=== PATIENT | male | born 1985 | race Caucasian/White ===

== ENCOUNTER 2023-07-20 06:59 | Emergency (ER) | payer MEDICAID, SELFPAY ==
[2023-07-20 07:10] VITALS: BP 142/89; PULSE 79; TEMP 36.4; O2SAT 98; BMI 58.1
--- NOTE | 2023-07-20 07:29 | XR_ITS ---
Patient: LISSETTE THOMPSON Facility:?[facility] Patient ID:?[id number] Site Patient ID:?[id number] Site :?1985 Study:?XRay-Abdomen 2 VIEW-07/20/2023 8:13:02 AM Ordering Physician:JACKI Final Report: Indication: Epigastric pain. History of achalasia. Technique: Upright and supine views of the abdomen were acquired Comparison: None Findings: Osseous structures are normal. Bowel gas pattern is within normal limits. In the lower thoracic region, there may be subtle abnormal concavity at the azygous esophageal recess. This can be seen in a dilated esophagus. The esophagus is very difficult to evaluate by plain film. Additional imaging should be considered as clinically warranted. Impression: 1. Normal bowel gas pattern. 2. Possible subtle abnormal concavity at the as ago esophageal recess in the lower thorax. This can be seen in dilated esophagus. Esophageal pathology is very difficult to evaluate by plain film. Additional imaging should be considered as clinically warranted Dictated by Rivera Costello MD @ 07/20/2023 8:17:32 AM Signed by:?Rivera Costello MD @07/20/2023 8:17:32 AM (Electronic Signature)
--- NOTE | 2023-07-20 07:29 | XR_ITS ---
Patient: LISSETTE THOMPSON Facility:?[facility] Patient ID:?[id number] Site Patient ID:?[id number] Site :?1985 Study:?XRay-Chest 2 VIEW-07/20/2023 8:12:13 AM Ordering Physician:JACKI Final Report: INDICATION: Chest pain COMPARISON: None TECHNIQUE: PA and lateral views of the chest were acquired FINDINGS: TUBES AND LINES: None. HEART AND MEDIASTINUM: The heart size is normal. The mediastinal contour appears normal for patient age. LUNGS AND PLEURAL SPACES: The lungs appear normal.The pleural spaces are unremarkable. OSSEOUS STRUCTURES: Age-appropriate appearance. No acute focal finding. IMPRESSION: No evidence of active pulmonary disease. Dictated by Rivera Costello MD @ 07/20/2023 8:13:48 AM Signed by:?Rivera Costello MD @07/20/2023 8:13:48 AM (Electronic Signature)
--- NOTE | 2023-07-20 07:31 | ED_ITS ---
HPI - General Adult General Chief complaint: Chest Pain <Alta Torres MD - Last Filed: 07/20/23 23:58> Stated complaint: Chest pain, nausea, vomiting <lAta Torres MD - Last Filed: 07/20/23 23:58> Time Seen by Provider: 07/20/23 07:17 <Alta Torres MD - Last Filed: 07/20/23 23:58> Source: patient <Alta Torres MD - Last Filed: 07/20/23 23:58> Mode of arrival: ambulatory <Alta Torres MD - Last Filed: 07/20/23 23:58> Limitations: no limitations <Alta Torres MD - Last Filed: 07/20/23 23:58> History of Present Illness HPI narrative: 37-year-old male presents the emergency department for evaluation of weakness, nausea and chest area pain. Pain started about 36 hours ago. It alternates in waves lasting a few minutes from about 1-4 currently. He had 2 episodes each lasting about 30 minutes each where the pain was severe. The last severe episode was yesterday afternoon. After the severe episodes of pain, he has also had bouts of diarrhea, nonbloody. Last stool was yesterday. Unable to tolerate food but has been drinking water. Feels like his urination is getting decreased. No sick contacts, no pertinent travel. No fever. No trauma or injury. No cardiac or exertional symptoms, no palpitations. He reports that he does feel little short of breath but is he describes as I am interpreting it more that he is feeling weak. He feels very nauseated but has not thrown up. Reports that he is physically unable to vomit. No dizziness or neurological changes. 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 He says that this started after a bout of COVID a few years ago. He has had several endoscopies. He takes nifedipine every morning for this, is not regularly using a proton pump inhibitor but did take a dose yesterday with no significant improvement in symptoms. It does sound as though he had appropriate biopsies and workup during the evaluation of his achalasia. He also tried Tums yesterday with no significant improvement in his symptoms. He reports that during the severe bout of pain yesterday afternoon, he had a brief syncopal episode lasting just a couple of seconds that was witnessed by his , was definitely not seizure like in their description. He reports that this was from the severe pain. Has not occurred since. No dysuria. No prior history of abdominal surgeries. No right upper quadrant pain or history of gallbladder disease. Family history is notable for gallbladder disease in his brother. States that he does not drink alcohol. Remain pertinent past medical history benign besides the achalasia. Allergies to Augmentin. Home meds nifedipine unknown dose every morning. No longer using omeprazole that is listed. Nonsmoker, no pertinent travel. ROS notable for the chest/GI symptoms as described above. Otherwise denies times 12 systems. <Alta Torres MD - Last Filed: 07/20/23 23:58> Related Data Home medications: Home Medications Medication Instructions Recorded Confirmed nifedipine 30 mg tablet,extended tab PO 06/18/22 02/03/23 release dicyclomine 10 mg capsule 10 mg PO PRN 02/03/23 02/03/23 pantoprazole 40 mg tablet,delayed 40 mg PO PRN 02/03/23 02/03/23 release Previous Rx's Medication Instructions Recorded ondansetron 4 mg disintegrating 4 mg PO Q6H #20 tabs 07/20/23 tablet <Alta Torres MD - Last Filed: 07/20/23 23:58> Allergies/adverse reactions: Allergies Allergy/AdvReac Type Severity Reaction Status Date / Time amoxicillin [From Augmentin] Allergy Verified 02/03/23 12:46 clavulanic acid Allergy Verified 02/03/23 12:46 [From Augmentin] <Alta Torres MD - Last Filed: 07/20/23 23:58> PFSH PFSH Medical History: Medical History Wound of foot ?S91.309A - Unspecified open wound, unspecified foot, initial encounter (ICD- 10) <Alta Torres MD - Last Filed: 07/20/23 23:58> Social History: Social History Smoking Status: Never smoker Second hand tobacco smoke exposure: No How often do you have a drink containing alcohol: never AUDIT-C Alcohol total score: 0 Non-prescribed substance use: denies use service: No <Alta Torres MD - Last Filed: 07/20/23 23:58> Exam Const: Vital Signs, click to edit/add: Vital Signs - 24 hr 07/20/23 07:10 07/20/23 09:03 Temperature 97.6 F 98.0 F Pulse Rate [Pulse Oximeter] 79 72 Respiratory Rate 16 Blood Pressure [Ri ght Upper Arm] 142/89 H 136/72 Pulse Oximetry 98 98 Oxygen Delivery Me thod Room Air Room Air <Alta Torres MD - Last Filed: 07/20/23 23:58> Vital Signs, click to edit/add: Vital Signs - 24 hr 07/20/23 07:10 07/20/23 09:03 Temperature 97.6 F 98.0 F Pulse Rate [Pulse Oximeter] 79 72 Respiratory Rate 16 Blood Pressure [Ri ght Upper Arm] 142/89 H 136/72 Pulse Oximetry 98 98 Oxygen Delivery Me thod Room Air Room Air <Macario Tejada DO - Last Filed: 07/20/23 09:17> Documenting provider has reviewed patient's vital signs: yes <Alta Torres MD - Last Filed: 07/20/23 23:58> Common normals: no apparent distress and alert <Alta Torres MD - Last Filed: 07/20/23 23:58> General appearance: cooperative <Alta Torres MD - Last Filed: 07/20/23 23:58> Other: Appears mildly ill, answers questions appropriately. Good historian. Friendly and cooperative. <Alta Torres MD - Last Filed: 07/20/23 23:58> HENMT: Common normals: normocephalic <Alta Torres MD - Last Filed: 07/20/23 23:58> Head and scalp: normocephalic <Alta Torres MD - Last Filed: 07/20/23 23:58> Face and sinus: normal facial exam <Alta Torres MD - Last Filed: 07/20/23 23:58> Mouth: oral and palatal mucosa normal <MD Lexus Worthy Last Filed: 07/20/23 23:58> Throat: posterior oropharynx normal <MD Lexus Worthy Last Filed: 07/20/23 23:58> Eye: Common normals: conjunctivae normal <MD Lexus Worthy Last Filed: 07/20/23 23:58> General eye: normal appearance of both eyes <MD Lexus Worthy Last Filed: 07/20/23 23:58> Conjunctiva: conjunctiva(e) normal <MD Lexus Worthy Last Filed: 07/20/23 23:58> Neck & C-Spine: Common normals: full ROM and no lymphadenopathy <MD Lexus Worthy Last Filed: 07/20/23 23:58> Chest: Common normals: inspection of chest normal <MD Lexus Worthy Last Filed: 07/20/23 23:58> Resp: Common normals: normal respiratory effort, no use of accessory muscles and clear to auscultation bilaterally <MD Lexus Worthy Last Filed: 07/20/23 23:58> Effort & inspection: able to speak in complete sentences <MD Lexus Worthy Last Filed: 07/20/23 23:58> Auscultation: clear to auscultation bilaterally <MD Lexus Worthy Last Filed: 07/20/23 23:58> Cardio: Common normals: regular rate, regular rhythm, S1 normal heart sound, S2 normal heart sound and no murmurs <MD Lexus Worthy Last Filed: 07/20/23 23:58> Rate: regular rate <MD Lexus Worthy Last Filed: 07/20/23 23:58> Rhythm: regular rhythm <MD Lexus Worthy Last Filed: 07/20/23 23:58> Heart sounds: S1 normal and S2 normal <MD Lexus Worthy Last Filed: 07/20/23 23:58> GI: Common normals: Normal to inspection, nondistended, normoactive bowel sounds present, soft to palpation, non-tender, no hepatosplenomegaly and no masses <Alta Torres MD - Last Filed: 07/20/23 23:58> Inspection: normal to inspection <Alta Torres MD - Last Filed: 07/20/23 23:58> Palpation: soft and no hepatosplenomegaly <Alta Torres MD - Last Filed: 07/20/23 23:58> : Common normals: no CVA tenderness <Alta Torres MD - Last Filed: 07/20/23 23:58> Bladder/kidney exam: no CVA tenderness <Alta Torres MD - Last Filed: 07/20/23 23:58> Back & Pelvis: Common normals: no CVA tenderness <Alta Torres MD - Last Filed: 07/20/23 23:58> Extremity: Common normals: normal to inspection, normal capillary refill and no pedal edema <Alta Torres MD - Last Filed: 07/20/23 23:58> Neuro: Sensorium/orientation: alert <Alta Torres MD - Last Filed: 07/20/23 23:58> Speech: speech normal <Alta Torres MD - Last Filed: 07/20/23 23:58> Motor exam: no tremor noted <Alta Torres MD - Last Filed: 07/20/23 23:58> Psych: Attitude: calm and engaged <Alta Torres MD - Last Filed: 07/20/23 23:58> Insight: insight good <MD Lexus Worthy Last Filed: 07/20/23 23:58> Judgement: judgment good <MD Lexus Worthy Last Filed: 07/20/23 23:58> Skin: Common normals: no rashes or lesions noted <MD Lexus Worthy Last Filed: 07/20/23 23:58> General skin exam: no rashes or lesions noted <Alta Torres MD - Last Filed: 07/20/23 23:58> Course Course ED Course: Chest discomfort likely related to GI source. Could be related to gastritis, esophagitis, complications from his achalasia, gallbladder disease, pancreatitis, viral illness, cardiopulmonary process. Differential is quite wide in this patient due to his history. At this point, he does not appear toxic. I suspect he is getting a little dehydrated and that is contributing to his weakness. He is quite nauseated and because of his achalasia it is possible that he would have difficulty vomiting. I recommend that we start an IV, give 4 mg of Zofran, 1 L of normal saline and IV Protonix. Chest x-ray, abdominal x- ray, basic labs and EKG. Re-evaluate once labs are back, consider CT or additional workup. I suspect that the previous syncopal episode was likely related to dehydration combined with severe pain. But we will investigate for any underlying cardiac disease. Handing over care to incoming day shift partner. <Alta Torres MD - Last Filed: 07/20/23 23:58> Vital Signs Vital signs: Initial Vital Signs Temperature 97.6 F 07/20/23 07:10 Temperature Source Temporal Artery Scan 07/20/23 07:10 Pulse Rate 79 07/20/23 07:10 Blood Pressure 142/89 H 07/20/23 07:10 Blood Pressure Mean 106 H 07/20/23 07:10 Blood Pressure Position Supine 07/20/23 07:10 Pulse Oximetry 98 07/20/23 07:10 Oxygen Delivery Method Room Air 07/20/23 07:10 Vital Signs Temperature 97.6 F 07/20/23 07:10 Pulse Rate 79 07/20/23 07:10 Blood Pressure 142/89 H 07/20/23 07:10 Pulse Oximetry 98 07/20/23 07:10 Oxygen Delivery Method Room Air 07/20/23 07:10 Temperature 98.0 F 07/20/23 09:03 Pulse Rate 72 07/20/23 09:03 Respiratory Rate 16 07/20/23 09:03 Blood Pressure 136/72 07/20/23 09:03 Pulse Oximetry 98 07/20/23 09:03 Oxygen Delivery Method Room Air 07/20/23 09:03 <Alta Torres MD - Last Filed: 07/20/23 23:58> Initial Vital Signs Temperature 97.6 F 07/20/23 07:10 Temperature Source Temporal Artery Scan 07/20/23 07:10 Pulse Rate 79 07/20/23 07:10 Blood Pressure 142/89 H 07/20/23 07:10 Blood Pressure Mean 106 H 07/20/23 07:10 Blood Pressure Position Supine 07/20/23 07:10 Pulse Oximetry 98 07/20/23 07:10 Oxygen Delivery Method Room Air 07/20/23 07:10 Vital Signs Temperature 97.6 F 07/20/23 07:10 Pulse Rate 79 07/20/23 07:10 Blood Pressure 142/89 H 07/20/23 07:10 Pulse Oximetry 98 07/20/23 07:10 Oxygen Delivery Method Room Air 07/20/23 07:10 Temperature 98.0 F 07/20/23 09:03 Pulse Rate 72 07/20/23 09:03 Respiratory Rate 16 07/20/23 09:03 Blood Pressure 136/72 07/20/23 09:03 Pulse Oximetry 98 07/20/23 09:03 Oxygen Delivery Method Room Air 07/20/23 09:03 <Macario Tejada DO - Last Filed: 07/20/23 09:17> Medications Administered Medications: Discontinued Medications Generic Name Dose Route Start Last Admin Trade Name Freq PRN Reason Stop Dose Admin Sodium Chloride 1,000 mls @ 1,000 mls/hr 07/20/23 07:30 07/20/23 08:51 0.9 % Sodium Chloride 1000 Ml IV 07/20/23 08:29 Infused .Q1H NICKI Infusion Ondansetron HCl 4 mg 07/20/23 07:29 07/20/23 07:46 Ondansetron 2 Mg/Ml Inj IVP 07/20/23 07:30 4 mg ONCE ONE Administration Pantoprazole Sodium 40 mg 07/20/23 07:29 07/20/23 07:50 Pantoprazole Sodium 40 Mg Inj IVP 07/20/23 07:30 40 mg ONCE ONE Administration <Alta Torres MD - Last Filed: 07/20/23 23:58> Discontinued Medications Generic Name Dose Route Start Last Admin Trade Name Freq PRN Reason Stop Dose Admin Sodium Chloride 1,000 mls @ 1,000 mls/hr 07/20/23 07:30 07/20/23 08:51 0.9 % Sodium Chloride 1000 Ml IV 07/20/23 08:29 Infused .Q1H NICKI Infusion Ondansetron HCl 4 mg 07/20/23 07:29 07/20/23 07:46 Ondansetron 2 Mg/Ml Inj IVP 07/20/23 07:30 4 mg ONCE ONE Administration Pantoprazole Sodium 40 mg 07/20/23 07:29 07/20/23 07:50 Pantoprazole Sodium 40 Mg Inj IVP 07/20/23 07:30 40 mg ONCE ONE Administration <Macario Tejada DO - Last Filed: 07/20/23 09:17> Medical Decision Making MDM Narrative Medical decision making narrative: Patient was signed out to me pending imaging and lab work. Lab work all returned showing no concerning abnormalities. His CRP is elevated at 3.8 but this is a nonspecific test and just means there is inflammation summer in the body. I was signed note that this is likely viral gastroenteritis and I could be causing the CRP. She is otherwise doing well. Imaging shows no concerning abnormalities. He states symptoms have resolved now and can he can finally rest. I will discharge the patient and given med prescription for Zofran and informed him to continue taking his PPI. He is agreeable to this plan. <Macario Tejada DO - Last Filed: 07/20/23 09:17> Lab Data Lab results reviewed: Yes I reviewed the patient's lab results <Alta Torres MD - Last Filed: 07/20/23 23:58> Labs: Lab Results 07/20/23 07/20/23 Range/Units 07:45 07:48 WBC 6.45 (4.50-11.00) K/uL RBC 5.02 (4.30-5.90) m/uL Hgb 15.8 (13.5-17.5) gm/dL Hct 44.2 (37.0-53.0) % MCV 88 (80-100) fL MCH 32 (26-34) pg MCHC 36 (32-36) gm/dL RDW Coeff of Naresh 11.8 (11.5-15.5) % Plt Count 229 (140-440) K/uL Neut % (Auto) 76.6 H (42.0-72.0) % Lymph % (Auto) 10.4 L (20-44) % Miller % (Auto) 12.1 H (0.0-11.0) % Eos % (Auto) 0.3 (0.0-7.0) % Baso % (Auto) 0.3 (0.0-3.0) % Neut # (Auto) 4.90 (1.7-7.0) K/uL Lymph # (Auto) 0.70 L (0.90-2.90) K/uL Miller # (Auto) 0.80 (0.00-0.90) K/UL Eos # (Auto) 0.02 (0.00-0.50) K/uL Baso # (Auto) 0.02 (0.00-0.30) K/uL Abs Immat Gran (auto) 0.02 (0.00-0.30) K/uL Imm/Tot Granulo (auto) 0.3 % Sodium 135 (135-149) mmol/L Potassium 3.5 L (3.6-5.1) mmol/L Chloride 101 (96-114) mmol/L Carbon Dioxide 23 (20-32) mmol/L Anion Gap 11 (7-15) mEq/L BUN 14 (5-24) mg/dL Creatinine 0.9 (0.5-1.5) mg/dL Estimated Creat Clear 119.69 Estimated GFR 113 ml/min Glucose 105 (60-115) mg/dL Calcium 9.3 (8.4-10.6) mg/dL Total Bilirubin 2.3 H (0.1-1.5) mg/dL AST 23 (12-35) U/L ALT 25 (4-50) U/L Alkaline Phosphatase 59 (40-150) U/L C-Reactive Protein 3.8 H (0.5-1.0) mg/dL NT-Pro-B Natriuret Pep 31 pg/mL Total Protein 7.4 (6.0-8.3) g/dL Albumin 4.5 (3.3-5.0) g/dL Lipase 61 (23-300) U/L SARS-CoV-2 (PCR) Negative SARS-CoV-2 (Negative) Influenza Type A (PCR) Negative PCR FLU A (Negative) Influenza Type B (PCR) Negative PCR FLU B (Negative) RSV (PCR) Negative PCR RSV (Negative) POC Troponin I 0.00 L (0.01-0.04) ng/ml <Alta Torres MD - Last Filed: 07/20/23 23:58> Lab Results 07/20/23 07/20/23 Range/Units 07:45 07:48 WBC 6.45 (4.50-11.00) K/uL RBC 5.02 (4.30-5.90) m/uL Hgb 15.8 (13.5-17.5) gm/dL Hct 44.2 (37.0-53.0) % MCV 88 (80-100) fL MCH 32 (26-34) pg MCHC 36 (32-36) gm/dL RDW Coeff of Naresh 11.8 (11.5-15.5) % Plt Count 229 (140-440) K/uL Neut % (Auto) 76.6 H (42.0-72.0) % Lymph % (Auto) 10.4 L (20-44) % Miller % (Auto) 12.1 H (0.0-11.0) % Eos % (Auto) 0.3 (0.0-7.0) % Baso % (Auto) 0.3 (0.0-3.0) % Neut # (Auto) 4.90 (1.7-7.0) K/uL Lymph # (Auto) 0.70 L (0.90-2.90) K/uL Miller # (Auto) 0.80 (0.00-0.90) K/UL Eos # (Auto) 0.02 (0.00-0.50) K/uL Baso # (Auto) 0.02 (0.00-0.30) K/uL Abs Immat Gran (auto) 0.02 (0.00-0.30) K/uL Imm/Tot Granulo (auto) 0.3 % Sodium 135 (135-149) mmol/L Potassium 3.5 L (3.6-5.1) mmol/L Chloride 101 (96-114) mmol/L Carbon Dioxide 23 (20-32) mmol/L Anion Gap 11 (7-15) mEq/L BUN 14 (5-24) mg/dL Creatinine 0.9 (0.5-1.5) mg/dL Estimated Creat Clear 119.69 Estimated GFR 113 ml/min Glucose 105 (60-115) mg/dL Calcium 9.3 (8.4-10.6) mg/dL Total Bilirubin 2.3 H (0.1-1.5) mg/dL AST 23 (12-35) U/L ALT 25 (4-50) U/L Alkaline Phosphatase 59 (40-150) U/L C-Reactive Protein 3.8 H (0.5-1.0) mg/dL NT-Pro-B Natriuret Pep 31 pg/mL Total Protein 7.4 (6.0-8.3) g/dL Albumin 4.5 (3.3-5.0) g/dL Lipase 61 (23-300) U/L SARS-CoV-2 (PCR) Negative SARS-CoV-2 (Negative) Influenza Type A (PCR) Negative PCR FLU A (Negative) Influenza Type B (PCR) Negative PCR FLU B (Negative) RSV (PCR) Negative PCR RSV (Negative) POC Troponin I 0.00 L (0.01-0.04) ng/ml <Macario Tejada DO - Last Filed: 07/20/23 09:17> Imaging Data Abdominal x-ray: Radiologist's impression: 1. Normal bowel gas pattern. 2. Possible subtle abnormal concavity at the as ago esophageal recess in the lower thorax. This can be seen in dilated esophagus. Esophageal pathology is very difficult to evaluate by plain film. Additional imaging should be considered as clinically warranted Dictated by Rivera Costello MD @ 07/20/2023 8:17:32 AM <Macario Tejada DO - Last Filed: 07/20/23 09:17> Chest x-ray: Radiologist's impression: No evidence of active pulmonary disease. Dictated by Rivera Costello MD @ 07/20/2023 8:13:48 AM <Macario Tejada DO - Last Filed: 07/20/23 09:17> ECG Data Attestation: I personally reviewed and interpreted this ECG as follows: <Alta Torres MD - Last Filed: 07/20/23 23:58> Prior ECG tracings: not available for review <Alta Torres MD - Last Filed: 07/20/23 23:58> Interpretation: Normal sinus rhythm, rate of 77. Normal axis and intervals. Good R-wave progression. No significant ST or T-wave abnormalities. Normal EKG. <Alta Torres MD - Last Filed: 07/20/23 23:58> Discharge Plan Discharge Clinical Impression: Atypical chest pain <Alta Torres MD - Last Filed: 07/20/23 23:58> Patient Disposition: Home, Self-Care <Alta Torres MD - Last Filed: 07/20/23 23:58> Condition: Improved <Alta Torres MD - Last Filed: 07/20/23 23:58> Instructions: Dehydration (ED), Noncardiac Chest Pain (ED) <Alta Torres MD - Last Filed: 07/20/23 23:58> Additional Instructions: It appears she symptoms are related to a viral etiology. I will prescribe Zofran for your nausea. Continue to take a proton pump inhibitor at home. Make sure you stay well hydrated as that could be contributing to your symptoms. Return for new or worsening symptoms. If symptoms persist follow-up with the primary care provider. <Alta Torres MD - Last Filed: 07/20/23 23:58> Prescriptions: New ondansetron 4 mg tablet,disintegrating 4 mg PO Q6H Qty: 20 0RF No Action nifedipine 30 mg tablet extended release PO dicyclomine 10 mg capsule 10 mg PO PRN pantoprazole 40 mg tablet,delayed release (DR/EC) 40 mg PO PRN <Alta Torres MD - Last Filed: 07/20/23 23:58> Follow Up/Referrals: Provider,Not a Local [Primary Care Provider] - <Alta Torres MD - Last Filed: 07/20/23 23:58> Stand Alone Forms: My[facility] Info Instructions <Alta Torres MD - Last Filed: 07/20/23 23:58>
[2023-07-20] MEDS: 0.9 % SODIUM CHLORIDE 1000 ml 1,000 ML IV (07:45)
[2023-07-20] MEDS: ONDANSETRON 2 MG/ML inj 4 MG IVP (07:46)
[2023-07-20] MEDS: PANTOPRAZOLE SODIUM 40 MG INJ IVP (07:50)
[2023-07-20 08:03] LABS: Basophils Absolute Auto 0.02 K/uL (0.00-0.30); Basophils Percent Auto 0.3 % (0.0-3.0); Eosinophils Absolute Auto 0.02 K/uL (0.00-0.50); Eosinophils Percent Auto 0.3 % (0.0-7.0); Hematocrit 44.2 % (37.0-53.0); Hemoglobin* 15.8 gm/dL (13.5-17.5); Immature Granulocytes Abs Auto 0.02 K/uL (0.00-0.30); Immature Granulocytes Pct Auto 0.3 %; Lymphocytes Percent Auto 10.4 % (20-44); Mean Corpuscular HGB Conc 36 gm/dL (32-36); Mean Corpuscular Hemoglobin 32 pg (26-34); Mean Corpuscular Volume 88 fL (80-100); Monocytes Percent Auto 12.1 % (0.0-11.0); Neutrophils Percent Auto 76.6 % (42.0-72.0); Platelet Count* 229 K/uL (140-440); RDW Coefficient of Variation % 11.8 % (11.5-15.5); Red Blood Count 5.02 m/uL (4.30-5.90); White Blood Count* 6.45 K/uL (4.50-11.00)
[2023-07-20 08:10] LABS: Slide Review Reflex No
[2023-07-20 08:12] LABS: Albumin* 4.5 g/dL (3.3-5.0); Chloride* 101 mmol/L (96-114); Sodium* 135 mmol/L (135-149)
[2023-07-20 08:13] LABS: Potassium* 3.5 mmol/L (3.6-5.1)
[2023-07-20 08:15] LABS: Alkaline Phosphatase* 59 U/L (40-150); Anion Gap 11 mEq/L (7-15); Aspartate Amino Transferase* 23 U/L (12-35); Bilirubin Total* 2.3 mg/dL (0.1-1.5); Blood Urea Nitrogen* 14 mg/dL (5-24); Carbon Dioxide* 23 mmol/L (20-32); Creatinine* 0.9 mg/dL (0.5-1.5); Est. Creatinine Clearance* 119.69; Estimated Glomerular Filt Rate 113 ml/min; Lipase* 61 U/L (23-300); Total Protein* 7.4 g/dL (6.0-8.3)
[2023-07-20 08:16] LABS: Alanine Aminotransferase* 25 U/L (4-50); Calcium* 9.3 mg/dL (8.4-10.6); Glucose* 105 mg/dL (60-115)
[2023-07-20 08:18] LABS: C Reactive Protein* 3.8 mg/dL (0.5-1.0)
[2023-07-20 08:31] LABS: NT Pro B Type NatriureticPept* 31 pg/mL
[2023-07-20 08:38] LABS: PCR FLU A Negative PCR FLU A (Negative); PCR FLU B Negative PCR FLU B (Negative); PCR RSV Negative PCR RSV (Negative); SARS PCR* Negative SARS-CoV-2 (Negative)
--- NOTE | 2023-07-20 08:52 | PC.NURSE ---
Pt resting, denies discomfort currently.
[2023-07-20 09:03] VITALS: BP 136/72; PULSE 72; RESP 16; TEMP 36.7; O2SAT 98
== END 2023-07-20 09:04 | disposition home or self-care (01) ==
PROVIDERS: Family Medicine; Emergency Provider Student in an Organized Health Care Education/Training Program
DX: R07.9 Chest pain, unspecified (principal)
CPT/HCPCS: 36415; 71046; 74019; 80053; 83690; 83880; 84484; 85025; 86140; 87631; 93005; 96374; 96375; 99283; 99284; 99285; C9113; J2405; J7030